=== PATIENT | female | born 1950 | race Caucasian/White ===

== ENCOUNTER → 2018-07-24 | Outpatient (CLI) | payer OTHER ==
[~2018-07-24] MED LIST: GADOBUTROL 10 ML VIAL IVP ONE
== END ==
LOC: FIMAGING 15:33
PROVIDERS: ATTEND Internal Medicine Infectious Disease
DX: L53.9 Erythematous condition, unspecified (principal); S99.921A Unspecified injury of right foot, initial encounter; L03.032 Cellulitis of left toe; M67.472 Ganglion, left ankle and foot
CPT/HCPCS: 82565-PO; A9585

== ENCOUNTER → 2019-01-01 | Outpatient (CLI) | payer OTHER | LOC: EMCIMAGING 07:53 | PROVIDERS: ATTEND Podiatrist Foot & Ankle Surgery | DX: L03.031 Cellulitis of right toe (principal); M20.11 Hallux valgus (acquired), right foot; M19.071 Primary osteoarthritis, right ankle and foot | CPT/HCPCS: 73720-PN ==